=== PATIENT | female | born 1960 | race Caucasian/White ===

== ENCOUNTER 2016-10-19 12:59 | Emergency (ER) | payer OTHER, MEDICAID ==
--- NOTE | 2016-10-19 13:50 | RAD ---
PROCEDURE: Chest,2 Views CLINICAL HISTORY: right low post thoracic pain INDICATION: Same as above COMPARISON: None TECHNIQUE: PA and and lateral chest radiographs were obtained. FINDINGS: Multilevel degenerative changes seen in the thoracic spine There are no discrete airspace infiltrates, pneumothoraces or pleural effusions. The pulmonary vascularity is normal The cardiomediastinal silhouette is unremarkable for patient's age and sex. IMPRESSION: There is no acute pleural-parenchymal process seen in the imaged lung luna. There is multilevel degenerative change throughout the thoracic spine Electronically signed by: Nathen Church MD 10/19/2016 1:48 PM CDT Workstation: [id number]
--- NOTE | 2016-10-19 14:04 | ED.PDOC ---
History of Present Illness - General Chief Complaint: Back Pain or Injury Stated Complaint: right back pain Time Seen by Provider: 10/19/16 13:05 Source: patient Exam Limitations: no limitations - History of Present Illness Initial Comments: the patient is a 56-year-old female presenting due to mid back pain to the right of T8-T11 starting yesterday. Pain does come in spasms. It does make it hard to breathe at times. There is no rash. No recent trauma. No history of shingles in the area. No fever. Pain is worse to palpation and worse with movement and taking a deep breath.pain seems to be well above the level of the right kidney. No urinary symptoms. The patient did recently start taking a new blood pressure medication with hydrochlorothiazide as a component. Timing/Duration: 24 hours Severity: moderate Improving Factors: nothing Associated Symptoms: denies symptoms Allergies/Adverse Reactions: Allergies NO KNOWN ALLERGY Allergy (Verified 10/19/16 13:16) Home Medications: Ambulatory Orders Cyclobenzaprine HCl [Flexeril] 10 mg PO Q8HR PRN #30 tab 10/19/16 Review of Systems - Review of Systems Constitutional: States: no symptoms reported EENTM: States: no symptoms reported Respiratory: States: no symptoms reported Cardiology: States: no symptoms reported Gastrointestinal/Abdominal: States: no symptoms reported Genitourinary: States: no symptoms reported Musculoskeletal: States: back pain Skin: States: no symptoms reported Neurological: States: no symptoms reported Endocrine: States: no symptoms reported All other Systems: No Change from Baseline Past Medical History (General) - Patient Medical History Hx Hypertension: Yes Hx Diabetes: Yes - Vaccination History Hx Influenza Vaccination: No - Social History Hx Tobacco Use: Yes Hx Alcohol Use: No Hx Substance Use: No Hx Substance Use Treatment: No Hx Depression: No - Activities of Daily Living Hospice Agency (if applicable):: None - Female History Patient is a Female of Child Bearing Age (10 -59 yrs old): No Patient : No Family Medical History - Family History Mother Family History: Unknown Physical Exam - Physical Exam General Appearance: Alert, Comfortable, No apparent distress Eye Exam: bilateral normal Ears, Nose, Throat: hearing grossly normal, normal ENT inspection, normal pharynx Neck: full range of motion, supple Respiratory: chest non-tender, lungs clear, normal breath sounds, no respiratory distress, no accessory muscle use Cardiovascular/Chest: normal peripheral pulses, regular rate, rhythm, no edema Peripheral Pulses: radial,right: 2+, radial,left: 2+, dorsalis pedis,right: 2+, dorsalis pedis,left: 2+ Gastrointestinal/Abdominal: non tender, soft Back Exam: no vertebral tenderness, CVA tenderness (R) - midthoracic Extremity: normal range of motion, non-tender, normal inspection, no pedal edema Neurologic: alert, normal mood/affect, oriented x 3 Skin Exam: normal color Comments: Vital Signs - 24 hr 10/19/16 13:06 Temperature 97.2 F L Pulse Rate [ 60 pulse ox] Respiratory 20 Rate Blood Pressure 159/89 [Left Arm] O2 Sat by Pulse 98 Oximetry Progress - Progress Progress: 10/19/16 14:06 the patient is a 56-year-old female presenting to emergency room secondary to paraspinal pain to the right of T8-T11 for a short period of time. This does appear to be muscle spasms. The patient is to take 2 Aleve twice daily for the next 3 days with food. Additionally she will be written for some Flexeril as a muscle relaxer. She needs to increase her fluid intake. She can use topical heat in the form of a heat pad as well as icey hot or Biofreeze. She does need to stretch out the muscles. She also should discuss with her primary care doctor if the diuretic may be increasing her frequency of muscle spasms. ER warnings were given for any significant worsening. Steroids are being avoided due to diabetes. Departure - Departure Clinical Impression: Acute thoracic back pain Qualifiers: Back pain laterality: right Qualified Code(s): M54.6 - Pain in thoracic spine Disposition: Discharge to Home or Self Care Condition: Fair Departure Forms: ED Discharge - Pt. Copy, Patient Portal Self Enrollment Instructions: Low Back Pain Diet: regular diet Activity: increase activity as tolerated Prescriptions: Cyclobenzaprine HCl [Flexeril] 10 mg PO Q8HR PRN #30 tab PRN Reason: Muscle Spasms Home Medications: Ambulatory Orders Cyclobenzaprine HCl [Flexeril] 10 mg PO Q8HR PRN #30 tab 10/19/16 Additional Instructions: the patient is a 56-year-old female presenting to emergency room secondary to paraspinal pain to the right of T8-T11 for a short period of time. This does appear to be muscle spasms. The patient is to take 2 Aleve twice daily for the next 3 days with food. Additionally she will be written for some Flexeril as a muscle relaxer. She needs to increase her fluid intake. She can use topical heat in the form of a heat pad as well as icey hot or Biofreeze. She does need to stretch out the muscles. She also should discuss with her primary care doctor if the diuretic may be increasing her frequency of muscle spasms. ER warnings were given for any significant worsening. Steroids are being avoided due to diabetes.
[2016-10-19 14:47] VITALS: BP 147/84; TEMP 97.2; O2SAT 94
== END 2016-10-19 14:19 | disposition home or self-care (01) ==
LOC: ER 12:59
DX: M54.6 Pain in thoracic spine (principal); I10 Essential (primary) hypertension; E11.9 Type 2 diabetes mellitus without complications; Z87.891 Personal history of nicotine dependence